=== PATIENT | female | born 2000 | race Caucasian/White ===

== ENCOUNTER 2021-07-15 23:14 | Emergency (ER) | payer OTHER ==
[~2021-07-15] VITALS: Ht 165.1 cm; Wt 52.3 kg
[2021-07-16 00:19] LABS: BASO % 0.6 % (0.0-1.0); HEMOGLOBIN 11.9 g/dl (12.0-15.5); LYMPH # 1.4 10^3/uL (1.5-5.0); LYMPH % 22.2 % (24.0-44.0); MEAN CORPUSCULAR HEMOGLOBIN 25.9 pg (27.0-33.0); MEAN CORPUSCULAR HGB CONC 32.2 g/dl (32.0-36.5); MEAN CORPUSCULAR VOLUME 80.4 fl (80.0-96.0); MONO # 0.3 10^3/uL (0.0-0.8); MONO % 5.1 % (2.0-8.0); NEUTROPHILS # 4.5 10^3/uL (1.5-8.5); NEUTROPHILS % 71.9 % (36.0-66.0); PLATELET COUNT, AUTOMATED 235 10^3/uL (150-450); WHITE BLOOD COUNT 6.3 10^3/uL (4.0-10.0)
[2021-07-16 00:42] LABS: ALBUMIN 3.9 GM/DL (3.2-5.2); ALT/SGPT 15 U/L (12-78); BILIRUBIN,DIRECT 0.2 MG/DL (0.0-0.2); BILIRUBIN,TOTAL 0.4 MG/DL (0.2-1.0); BLOOD UREA NITROGEN 7 MG/DL (7-18); CALCIUM LEVEL 8.9 MG/DL (8.5-10.1); CARBON DIOXIDE LEVEL 29 MEQ/L (21-32); CHLORIDE LEVEL 105 MEQ/L (98-107); CREATININE FOR GFR 0.62 MG/DL (0.55-1.30); GLUCOSE, FASTING 81 MG/DL (70-100); LIPASE 67 U/L (73-393); POTASSIUM SERUM 3.8 MEQ/L (3.5-5.1); SODIUM LEVEL 138 MEQ/L (136-145); TOTAL PROTEIN 6.7 GM/DL (6.4-8.2)
[2021-07-16 00:48] LABS: HCG, SERUM QUALITATIVE NEGATIVE (NEGATIVE)
[2021-07-16 01:45] VITALS: BP 113/73
[2021-07-16] MEDS ORDERED: IBUP80TA PO (01:49)
[2021-07-16] MEDS ORDERED: KETOROLAC 30 MG/ML 1ML VIAL IV ONE (01:50)
== END 2021-07-16 02:27 | disposition home or self-care (01) ==
LOC: M ED 07-16 00:25
DX: R10.9 Unspecified abdominal pain (principal); N28.1 Cyst of kidney, acquired; Z91.040 Latex allergy status
CPT/HCPCS: 80048; 80076; 81001; 83690; 84703; 85025; 93041; 96374; 99284; J1885

== ENCOUNTER 2021-11-10 14:31 | Emergency (ER) | payer OTHER ==
[~2021-11-10] VITALS: Ht 165.1 cm; Wt 54.5 kg
[~2021-11-10 14:31] MED LIST: IBUP80TA PO
[2021-11-10 17:49] VITALS: BP 113/65
== END 2021-11-10 23:01 | disposition left against medical advice (07) ==
LOC: EDBD 14:31 → M ED 14:31
DX: Z53.21 Procedure and treatment not carried out due to patient leaving prior to being seen by health care provider (principal)

== ENCOUNTER 2021-12-22 13:44 | Emergency (ER) | payer OTHER | END 2021-12-22 13:56 | disposition left against medical advice (07) | LOC: M ED 13:44 → EDBD 13:44 → M ED 13:56 | DX: Z53.21 Procedure and treatment not carried out due to patient leaving prior to being seen by health care provider (principal) ==